=== PATIENT | female | born 1990 | race Caucasian/White ===

== ENCOUNTER 2017-04-28 10:58 | Inpatient (IN) | payer OTHER ==
[~2017-04-28] VITALS: Ht 165.1 cm; Wt 88.0 kg
[~2017-04-28 10:58] MED LIST: IBUP-974 PO; PREN-385 PO
[2017-04-28] MEDS ORDERED: LACTATED RINGERS 1,000 ML IV SCH (11:41)
[2017-04-28] MEDS ORDERED: METHYLERGONOVINE 0.2 MG/ML AMP IM PRN (11:45)
[2017-04-28] MEDS ORDERED: PROMETHAZINE 25 MG/ML VIAL IVP PRN (11:45)
[2017-04-28] MEDS ORDERED: NALBUPHINE HYDROCHLORIDE 10 MG/ML VIAL IVP PRN (11:45)
[2017-04-28] MEDS ORDERED: OXYTOCIN 10 UNITS/ML VIAL IM SCH (11:45)
[2017-04-28] MEDS ORDERED: CARBOPROST 250 MCG/ML AMP IM PRN (11:45)
[2017-04-28] MEDS ORDERED: MISOPROSTOL 25 MCG TAB VG SCH (12:00)
[2017-04-28] MEDS ORDERED: OXYTOCIN 20 UNITS/LR PREMIX 1,000 ML IV SCH (12:00)
[2017-04-28 13:18] LABS: APPEARANCE,URINE CLEAR (CLEAR); BILIRUBIN,URINE NEGATIVE (NEGATIVE); BLOOD, URINE NEGATIVE (NEGATIVE); COLOR,URINE YELLOW (YELLOW); LEUKOCYTE ESTERASE ,URINE TRACE (NEGATIVE); NITRITE, URINE NEGATIVE (NEGATIVE); PH,URINE 6.5 (5.0-9.0); PROTEIN,URINE NEGATIVE (NEGATIVE); UGLUCOSE NEGATIVE (NEGATIVE); UROBILINOGEN,URINE 0.2 EU/dL (0.2 - 1)
[2017-04-28 13:25] LABS: BACTERIA,URINE OCCASSIONAL /HPF (None Seen); RBC,URINE 0-5 (RARE) /HPF (0-5); SQUAMOUS EPITHELIAL CELL,UR 0-3 (FEW) /LPF (0-3 (FEW)); WBC,URINE 0-5 (RARE) /HPF (0-5)
[2017-04-28] MEDS ORDERED: OXYTOCIN 20 UNITS/LR PREMIX 1,000 ML IV ONE (14:28)
[2017-04-28] MEDS ORDERED: NALBUPHINE HYDROCHLORIDE 10 MG/ML VIAL ONE (16:32)
[2017-04-28] MEDS ORDERED: ROPIVACAINE 0.2%/NS PREMIX 250 ML EPI ONE (17:57)
[2017-04-28 18:22] LABS: BASOPHILS # (AUTO) 0.1 K/uL (0.00-0.22); EOSINOPHILS # (AUTO) 0.2 K/uL (0-0.4); EOSINOPHILS % (AUTO) 1.8 % (0.0-4.0); HEMATOCRIT 34.9 % (36-48); HEMOGLOBIN 11.4 g/dL (12.0-16.0); LYMPHOCYTES # (AUTO) 1.5 K/uL (2.5-16.5); LYMPHOCYTES % (AUTO) 17.5 % (20.5-51.1); MEAN CORPUSCULAR HEMOGLOBIN 28 pg (27-31); MEAN CORPUSCULAR HGB CONC 33 g/dL (33-37); MEAN CORPUSCULAR VOLUME 85 fL (80-94); MONOCYTES # (AUTO) 0.6 K/uL (0.8-1.0); MONOCYTES % (AUTO) 6.6 % (1.7-9.3); NEUTROPHILS # (AUTO) 6.4 K/uL (1.8-7.7); NEUTROPHILS % (AUTO) 73.1 % (42.2-75.2); PLATELET COUNT (AUTO) 148 K/uL (140-450); RED BLOOD CELL COUNT(AUTO) 4.09 MIL/uL (4.20-5.40); RED CELL DISTRIBUTION WIDTH 14.1 % (11.6-13.7); WHITE BLOOD COUNT (AUTO) 8.8 K/uL (4.8-10.8)
[2017-04-28] MEDS ORDERED: IBUPROFEN 800 MG TAB PO PRN (23:10)
[2017-04-28] MEDS ORDERED: WITCH HAZEL 40 PAD PACKAGE TP PRN (23:10)
[2017-04-28] MEDS ORDERED: MEASLES, MUMPS, AND RUBELLA 1 VIAL SQVAC PRN (23:10)
[2017-04-28] MEDS ORDERED: TEMAZEPAM 15 MG CAP PO PRN (23:10)
[2017-04-28] MEDS ORDERED: BENZOCAINE/MENTHOL 20%-0.5% 60 GM CAN TP PRN (23:10)
[2017-04-28] MEDS ORDERED: OXYTOCIN 10 UNITS/ML VIAL IM PRN (23:10)
[2017-04-29] MEDS: oxyCODONE/APAP 5/325 MG 1 TAB TAB PO PRN ×2 (03:53→08:26)
[2017-04-29 07:42] LABS: HEMATOCRIT 32.9 % (36-48); HEMOGLOBIN 10.7 g/dL (12.0-16.0)
--- NOTE | 2017-04-29 09:58 | NUR ---
PATIENT HAS BEEN SCREENED AND CATEGORIZED HIGH NUTRITION RISK. PATIENT WILL BE SEEN WITHIN 1-2 DAYS OF ADMISSION. 04/29/17-04/30/[address]
[2017-04-29] MEDS: HYDROcodone/APAP 5/325 MG 1 TAB TAB PO PRN ×2 (15:59→20:32)
[2017-04-29] MEDS ORDERED: DOCUSATE SOD/SENNA 50/8.6 MG 1 TAB PO SCH ×2 (21:00)
[2017-04-30] MEDS: HYDROcodone/APAP 5/325 MG 1 TAB TAB PO PRN ×2 (03:35→13:36)
== END 2017-04-30 15:05 | disposition home or self-care (01) | DRG 560 ==
LOC: MLD 10:58 → MFCC 04-29 01:20
PROVIDERS: ADMIT Obstetrics & Gynecology; ATTEND Obstetrics & Gynecology
PROC: 10E0XZZ Delivery of Products of Conception, External Approach (ICD-10-PCS; principal; 2017-04-28)
PROC: 10907ZC Drainage of Amniotic Fluid, Therapeutic from Products of Conception, Via Natural or Artificial Opening (ICD-10-PCS; 2017-04-28)
PROC: 0HQ9XZZ Repair Perineum Skin, External Approach (ICD-10-PCS; 2017-04-28)
PROC: 00HU33Z Insertion of Infusion Device into Spinal Canal, Percutaneous Approach (ICD-10-PCS; 2017-04-28)
PROC: 3E0R3CZ (ICD-10-PCS; 2017-04-28)
DX: O70.0 First degree perineal laceration during delivery (principal); Z37.0 Single live birth; Z3A.39 39 weeks gestation of pregnancy
CPT/HCPCS: 36415; 51702; 59409; 76805; 81001; 82947; 85018; 85025; 86592; 86886; 86900; 86901; J2300; J2590; J2795; J7120